=== PATIENT | female | born 1980 | race Caucasian/White ===

== ENCOUNTER 2017-02-13 23:43 | Inpatient (IN) | payer MEDICAID ==
[~2017-02-13] VITALS: Ht 170.2 cm; Wt 70.8 kg
[2017-02-14] MEDS ORDERED: ZOLPIDEM TARTRATE 10 MG TABLET PO PRN (01:30)
[2017-02-14 02:28] VITALS: BP 127/91
[2017-02-14 02:52] VITALS: BP 127/91
[2017-02-14] MEDS ORDERED: INFLUENZA VIRUS VACCINE QVS 2016-17 (3YR+)/PF 60 MCG/0.5 ML SYRINGE IM ONE (05:15)
[2017-02-14 08:26] LABS: BASOPHILS # (AUTO) 0.03 K/uL (0.00-0.20); BASOPHILS % (AUTO) 0.6 % (0.0-2.0); EOSINOPHILS # (AUTO) 0.06 K/uL (0.00-0.70); EOSINOPHILS % (AUTO) 1.14 % (1.0-6.0); HEMATOCRIT 37.4 % (36-46); HEMOGLOBIN 12.3 g/dL (12.0-16.0); LYMPHOCYTES # (AUTO) 1.7 K/uL (1.0-4.8); LYMPHOCYTES % (AUTO) 32.8 % (22.0-44.0); MEAN CORPUSCULAR HEMOGLOBIN 28.3 pg (26.0-34.0); MEAN CORPUSCULAR VOLUME 86 fL (80-100); MONOCYTES # (AUTO) 0.5 K/uL (0.1-1.0); MONOCYTES % (AUTO) 9.6 % (2.0-9.0); NEUTROPHILS # (AUTO) 2.9 K/uL (1.8-7.7); NEUTROPHILS % (AUTO) 55.9 % (40.0-70.0); PLATELET COUNT (AUTO) 225 K/uL (150-450); RED BLOOD CELL COUNT(AUTO) 4.36 MIL/uL (4.00-5.20); WHITE BLOOD COUNT (AUTO) 5.3 K/uL (4.5-11.0)
[2017-02-14 08:50] LABS: ALANINE AMINOTRANSFERASE 17 U/L (12-78); ALBUMIN 3.7 g/dL (3.4-5.0); ANION GAP 10 mmol/L (8-16); ASPARTATE AMINOTRANSFERASE 12 U/L (15-37); BILIRUBIN,TOTAL 1.1 mg/dL (0.1-1.0); CALCIUM, TOTAL 8.4 mg/dL (8.8-10.5); CARBON DIOXIDE 26 mmol/L (22-29); CHLORIDE 106 mmol/L (98-107); CREATININE 0.84 mg/dL (0.60-1.30); GLOMERULAR FILTR. RATE CALC > 60 mL/min (>60); SODIUM SERUM 142 mmol/L (136-145); TOTAL PROTEIN, SERUM 6.1 g/dL (6.4-8.2); UREA NITROGEN, BLOOD 6 mg/dL (7-18)
[2017-02-14 16:23] VITALS: BP 117/67
[2017-02-14] MEDS ORDERED: ACETAMINOPHEN 325 MG TABLET PO PRN (18:00)
[2017-02-14] MEDS ORDERED: IBUPROFEN 400 MG TABLET PO PRN (18:00)
[2017-02-14] MEDS ORDERED: OLANZapine 5 MG TABLET PO SCH (21:00)
[2017-02-15 06:10] VITALS: BP 109/64
[2017-02-15 08:15] VITALS: BP 110/68
[2017-02-15 08:24] LABS: HEMOGLOBIN A1C 5.4 % (4.5-6.2)
[2017-02-15 08:31] LABS: CHOL/HDL RATIO 2.6 (3.9-5.7); THYROID STIMULATING HORMONE 0.59 uIU/mL (0.36-3.74)
[2017-02-15 16:33] VITALS: BP 123/67
[2017-02-15] MEDS: OLANZapine 5 MG TABLET PO SCH (20:33)
[2017-02-16 01:42] VITALS: BP 111/66
[2017-02-16 08:46] VITALS: BP 94/51
[2017-02-16] MEDS: OLANZapine 5 MG TABLET PO SCH ×2 (08:59→21:00)
[2017-02-16 16:21] VITALS: BP 123/72
[2017-02-17 08:17] VITALS: BP 100/67
[2017-02-17] MEDS: OLANZapine 5 MG TABLET PO SCH ×2 (08:39→21:00)
[2017-02-17 16:09] VITALS: BP 112/64
[2017-02-18] MEDS: OLANZapine 5 MG TABLET PO SCH ×2 (08:30→20:35)
[2017-02-18 08:49] VITALS: BP 121/68
[2017-02-18 16:17] VITALS: BP 118/63
[2017-02-19] MEDS: OLANZapine 5 MG TABLET PO SCH ×2 (08:00→21:00)
[2017-02-19 08:39] VITALS: BP 118/56
[2017-02-19 16:15] VITALS: BP 124/67
[2017-02-20 08:38] VITALS: BP 108/65
[2017-02-20] MEDS: OLANZapine 5 MG TABLET PO SCH ×2 (08:42→21:00)
[2017-02-20 16:00] VITALS: BP 117/51
[2017-02-21 06:34] VITALS: BP 110/63
[2017-02-21 08:36] VITALS: BP 100/57
[2017-02-21] MEDS: OLANZapine 5 MG TABLET PO SCH ×2 (08:37→20:37)
[2017-02-21 16:00] VITALS: BP 119/69
[2017-02-22 06:10] VITALS: BP 105/60
[2017-02-22] MEDS: OLANZapine 5 MG TABLET PO SCH ×3 (08:31→20:18)
[2017-02-22 08:50] VITALS: BP 114/53
[2017-02-22] MEDS ORDERED: HALOPERIDOL LACTATE 5 MG/ML VIAL IM PRN (10:45)
[2017-02-22 16:44] VITALS: BP 110/63
[2017-02-23 07:04] VITALS: BP 115/73
[2017-02-23] MEDS: OLANZapine 5 MG TABLET PO SCH ×2 (08:37→20:11)
[2017-02-23 08:59] VITALS: BP 120/69
[2017-02-23 16:00] VITALS: BP 106/65
[2017-02-24 07:00] VITALS: BP 114/78
[2017-02-24] MEDS: FLUoxetine HCL 20 MG CAPSULE PO SCH (08:57)
[2017-02-24] MEDS: OLANZapine 5 MG TABLET PO SCH ×2 (08:57→20:37)
[2017-02-24 08:58] VITALS: BP 116/93
[2017-02-24] MEDS: QUEtiapine FUMARATE 100 MG TABLET PO PRN ×2 (10:27→20:37)
[2017-02-24] MEDS: LORazepam 2 MG TABLET PO PRN (10:27)
[2017-02-24 16:26] VITALS: BP 97/60
[2017-02-25 06:30] VITALS: BP 102/64
[2017-02-25] MEDS: FLUoxetine HCL 20 MG CAPSULE PO SCH (10:04)
[2017-02-25] MEDS: OLANZapine 5 MG TABLET PO SCH ×2 (10:04→20:16)
[2017-02-25] MEDS: LORazepam 2 MG TABLET PO PRN ×2 (10:05→20:17)
[2017-02-25 10:17] VITALS: BP 106/70
[2017-02-25 16:28] VITALS: BP 127/76
[2017-02-26 06:40] VITALS: BP 114/71
[2017-02-26 08:25] VITALS: BP 108/70
[2017-02-26] MEDS: OLANZapine 5 MG TABLET PO SCH ×2 (08:39→20:59)
[2017-02-26] MEDS: LORazepam 2 MG TABLET PO PRN (08:39)
[2017-02-26] MEDS: FLUoxetine HCL 20 MG CAPSULE PO SCH (08:39)
[2017-02-26 16:13] VITALS: BP 116/63
[2017-02-27 06:37] VITALS: BP 109/66
[2017-02-27 08:13] VITALS: BP 111/63
[2017-02-27] MEDS: LORazepam 2 MG TABLET PO PRN (08:27)
[2017-02-27] MEDS: QUEtiapine FUMARATE 100 MG TABLET PO PRN (08:27)
[2017-02-27] MEDS: OLANZapine 5 MG TABLET PO SCH ×2 (08:27→20:40)
[2017-02-27] MEDS: FLUoxetine HCL 20 MG CAPSULE PO SCH (08:27)
[2017-02-27 16:34] VITALS: BP 103/60
[2017-02-28 06:43] VITALS: BP 113/71
[2017-02-28] MEDS: FLUoxetine HCL 20 MG CAPSULE PO SCH (08:18)
[2017-02-28] MEDS: OLANZapine 5 MG TABLET PO SCH ×2 (08:18→20:28)
[2017-02-28 08:44] VITALS: BP 114/72
[2017-02-28 17:05] VITALS: BP 125/66
[2017-03-01 06:42] VITALS: BP 111/72
[2017-03-01] MEDS: OLANZapine 5 MG TABLET PO SCH ×2 (08:02→20:07)
[2017-03-01] MEDS: FLUoxetine HCL 20 MG CAPSULE PO SCH (08:02)
[2017-03-01 08:21] VITALS: BP 100/50
[2017-03-01 16:29] VITALS: BP 121/52
[2017-03-01] MEDS ORDERED: OLAN5TAB2 PO (19:31)
[2017-03-01] MEDS ORDERED: FLUO-191 PO (19:34)
== END 2017-03-02 07:30 | disposition home or self-care (01) | DRG 750 ==
LOC: B3A 02-14 01:22
PROVIDERS: ADMIT Psychiatry & Neurology Child & Adolescent Psychiatry; ATTEND Psychiatry & Neurology Child & Adolescent Psychiatry
DX: F25.1 Schizoaffective disorder, depressive type (principal); Z59.0 Homelessness; E80.6 Other disorders of bilirubin metabolism; F10.10 Alcohol abuse, uncomplicated; Z79.899 Other long term (current) drug therapy; F99 Mental disorder, not otherwise specified; Z28.21 Immunization not carried out because of patient refusal; Z91.5 Personal history of self-harm
CPT/HCPCS: 83036; 84443; 87081; 90471; J1630

== ENCOUNTER 2023-11-15 00:12 | Inpatient (IN) | payer MEDICAID ==
[~2023-11-15] VITALS: Ht 170.2 cm; Wt 73.5 kg
[~2023-11-15 00:12] MED LIST: FLUO-177 PO; OLAN5TAB52 PO
[2023-11-15] MEDS ORDERED: ZOLPIDEM TARTRATE 10 MG TABLET PO PRN (02:30)
[2023-11-15 03:33] VITALS: BP 112/77; PULSE 73; RESP 16; TEMP 96.8; O2SAT 98
[2023-11-15] MEDS ORDERED: ALBUTEROL SULFATE HFA 90 MCG/PUFF 8 GM INHALER IH PRN (07:15)
[2023-11-15] MEDS ORDERED: ONDANSETRON HCL 4 MG TABLET PO PRN (07:15)
[2023-11-15] MEDS ORDERED: DOCUSATE SODIUM 100 MG CAPSULE PO PRN (07:15)
[2023-11-15] MEDS ORDERED: PETROLATUM,WHITE 28 GM JELLY TP PRN (07:15)
[2023-11-15] MEDS ORDERED: CloNIDine HCL 0.1 MG TABLET PO PRN (07:15)
[2023-11-15] MEDS ORDERED: LOPERAMIDE HCL 2 MG CAPSULE PO PRN (07:15)
[2023-11-15] MEDS ORDERED: MAG HYDROX/ALUMINUM HYD/SIMETH ES 30 ML SUSPENSION UDCUP PO PRN (07:15)
[2023-11-15] MEDS ORDERED: OMEPRAZOLE 20 MG CAPSULE PO PRN (07:15)
[2023-11-15] MEDS ORDERED: BENZOCAINE/MENTHOL LOZENGE PO PRN (07:15)
[2023-11-15] MEDS ORDERED: MAGNESIUM HYDROXIDE SUSPENSION 30 ML UDCUP PO PRN (07:15)
[2023-11-15 08:05] LABS: APPEARANCE,URINE CLEAR (CLEAR); BILIRUBIN,URINE NEGATIVE (NEGATIVE); COLOR,URINE LIGHT YELLOW (YELLOW); GLUCOSE, URINE (UA) NEGATIVE (NEGATIVE); KETONES,URINE NEGATIVE (NEGATIVE); LEUKOCYTE ESTERASE ,URINE TRACE (NEGATIVE); NITRATE,URINE NEGATIVE (NEGATIVE); OCCULT BLOOD,URINE NEGATIVE (NEGATIVE); PROTEIN,URINE NEGATIVE (NEGATIVE); UROBILINOGEN,URINE <=1.0 mg/dL (<=1.0)
[2023-11-15 08:11] LABS: ALCOHOL, URINE DRUG SCREEN NEGATIVE (NEGATIVE); AMPHET/METH SCREEN,URINE NEGATIVE (NEGATIVE); BARBITURATE SCREEN, URINE NEGATIVE (NEGATIVE); BENZODIAZEPINES SCREEN,URINE NEGATIVE (NEGATIVE); CANNABINOID SCREEN,URINE NEGATIVE (NEGATIVE); COCAINE SCREEN,URINE NEGATIVE (NEGATIVE); METHADONE SCREEN, URINE NEGATIVE (NEGATIVE); OPIATE SCREEN,URINE NEGATIVE (NEGATIVE); PHENCYCLIDINE SCREEN,URINE NEGATIVE (NEGATIVE)
[2023-11-15 08:26] LABS: BACTERIA,URINE None Seen /HPF (None Seen); RBC,URINE None Seen /HPF (0-2)
[2023-11-15 08:27] LABS: CALCIUM OXALATE CRYSTALS,UR Moderate /LPF (None Seen)
[2023-11-15 08:30] VITALS: BP 93/55; PULSE 76; RESP 18; TEMP 97.8; O2SAT 97
[2023-11-15] MEDS ORDERED: RISP-31 PO (09:58)
[2023-11-15] MEDS ORDERED: MIRT-89 PO (09:58)
[2023-11-15] MEDS ORDERED: OLAN7.5T22 PO (09:59)
[2023-11-15] MEDS: RisperiDONE 2 MG TABLET PO SCH (17:25)
[2023-11-15 23:30] VITALS: BP 118/68; PULSE 74; RESP 18; TEMP 97.7; O2SAT 98
[2023-11-16] MEDS: LORazepam 2 MG TABLET PO PRN ×3 (08:20→20:56)
[2023-11-16] MEDS: HALOPERIDOL 5 MG TABLET PO PRN (08:20)
[2023-11-16] MEDS: RisperiDONE 2 MG TABLET PO SCH ×2 (08:20→16:32)
[2023-11-16 08:57] VITALS: BP 100/59; PULSE 77; RESP 18; TEMP 97.1; O2SAT 97
[2023-11-16 23:25] VITALS: BP 124/67; PULSE 79; RESP 17; TEMP 97.8
[2023-11-17] MEDS: RisperiDONE 2 MG TABLET PO SCH ×2 (08:12→16:38)
[2023-11-17 08:15] VITALS: BP 126/78; PULSE 79; RESP 16; TEMP 98; O2SAT 96
[2023-11-17] MEDS: HALOPERIDOL 5 MG TABLET PO PRN ×2 (11:48→15:49)
[2023-11-17] MEDS: LORazepam 2 MG TABLET PO PRN (11:48)
[2023-11-17 21:38] VITALS: BP 121/72; PULSE 82; RESP 17; TEMP 97.9; O2SAT 97
[2023-11-18 08:26] VITALS: BP 105/65; PULSE 105; RESP 18; TEMP 97.3; O2SAT 98
[2023-11-18] MEDS: RisperiDONE 3 MG TABLET PO SCH ×2 (08:43→17:18)
[2023-11-18] MEDS: LORazepam 2 MG TABLET PO PRN (16:20)
[2023-11-18 17:20] VITALS: BP 111/72; RESP 18
[2023-11-18 21:08] VITALS: RESP 18
[2023-11-19] MEDS: RisperiDONE 3 MG TABLET PO SCH ×2 (08:14→16:33)
[2023-11-19 09:47] VITALS: BP 92/63; PULSE 90; RESP 17; TEMP 98
[2023-11-19] MEDS: LORazepam 2 MG TABLET PO PRN (16:37)
[2023-11-19] MEDS: HALOPERIDOL 5 MG TABLET PO PRN (20:01)
[2023-11-19] MEDS: SULFAMETHOX/TRIMETH DS 800-160 MG/TABLET PO SCH (20:03)
[2023-11-19 21:07] VITALS: BP 100/63; PULSE 90; RESP 17; TEMP 97.5; O2SAT 97
[2023-11-20] MEDS: SULFAMETHOX/TRIMETH DS 800-160 MG/TABLET PO SCH ×2 (08:35→16:37)
[2023-11-20] MEDS: RisperiDONE 3 MG TABLET PO SCH ×2 (08:35→16:37)
[2023-11-20 09:00] VITALS: BP 103/72; PULSE 100; RESP 17; TEMP 97.6; O2SAT 98
[2023-11-20 16:38] VITALS: BP 121/75; PULSE 98; RESP 18
[2023-11-20] MEDS: LORazepam 2 MG TABLET PO PRN (16:38)
[2023-11-20] MEDS: ACETAMINOPHEN 325 MG TABLET PO PRN (18:02)
[2023-11-20 20:14] VITALS: BP 109/61; PULSE 84; RESP 18; TEMP 97.8
[2023-11-21 08:37] VITALS: BP 118/84; PULSE 78; RESP 16; TEMP 98; O2SAT 97
[2023-11-21] MEDS: SULFAMETHOX/TRIMETH DS 800-160 MG/TABLET PO SCH ×2 (08:40→17:03)
[2023-11-21] MEDS: RisperiDONE 3 MG TABLET PO SCH ×2 (08:40→17:03)
[2023-11-21] MEDS: LORazepam 2 MG TABLET PO PRN (14:05)
[2023-11-21] MEDS: HALOPERIDOL 5 MG TABLET PO PRN (14:05)
[2023-11-21] MEDS: IBUPROFEN 600 MG TABLET PO PRN (20:21)
[2023-11-21 20:24] VITALS: BP 114/76; PULSE 76; RESP 18; TEMP 97.9; O2SAT 96
[2023-11-21 21:19] VITALS: RESP 18
[2023-11-22 00:22] VITALS: BP 114/69; PULSE 76; RESP 16; TEMP 98.2; O2SAT 97
[2023-11-22 08:20] VITALS: BP 113/67; PULSE 88; RESP 16; TEMP 98; O2SAT 100
[2023-11-22] MEDS: SULFAMETHOX/TRIMETH DS 800-160 MG/TABLET PO SCH ×2 (08:29→17:03)
[2023-11-22] MEDS: RisperiDONE 2 MG TABLET PO SCH ×2 (08:29→17:03)
[2023-11-22 12:03] VITALS: RESP 17
[2023-11-22] MEDS: IBUPROFEN 600 MG TABLET PO PRN (12:03)
[2023-11-22] MEDS: LORazepam 2 MG TABLET PO PRN (14:49)
[2023-11-22] MEDS: HALOPERIDOL 5 MG TABLET PO PRN ×2 (14:49→21:40)
[2023-11-22 17:15] VITALS: RESP 16; O2SAT 100
[2023-11-22] MEDS: ACETAMINOPHEN 325 MG TABLET PO PRN (17:21)
[2023-11-22 18:21] VITALS: RESP 16; O2SAT 100
[2023-11-22 20:00] VITALS: BP 96/62; PULSE 84; RESP 18; TEMP 97.6; O2SAT 99
[2023-11-22] MEDS: BENZTROPINE MESYLATE 2 MG TABLET PO SCH (21:23)
[2023-11-23 08:27] VITALS: BP 119/66; PULSE 82; RESP 16; TEMP 97.9; O2SAT 97
[2023-11-23] MEDS: SULFAMETHOX/TRIMETH DS 800-160 MG/TABLET PO SCH ×2 (08:31→15:58)
[2023-11-23] MEDS: RisperiDONE 2 MG TABLET PO SCH ×2 (08:31→15:58)
[2023-11-23 10:25] VITALS: BP 112/70; PULSE 80; RESP 18; TEMP 97; O2SAT 98
[2023-11-23] MEDS: IBUPROFEN 600 MG TABLET PO PRN (10:25)
[2023-11-23] MEDS: BACITRACIN 28 GM OINTMENT TP PRN (11:14)
[2023-11-23] MEDS: LORazepam 2 MG TABLET PO PRN (11:21)
[2023-11-23 11:25] VITALS: BP 120/87; RESP 18; O2SAT 99
[2023-11-23] MEDS: HALOPERIDOL 5 MG TABLET PO PRN (13:12)
[2023-11-23] MEDS: BENZTROPINE MESYLATE 2 MG TABLET PO SCH (20:54)
[2023-11-23 21:58] VITALS: BP 97/54; PULSE 75; RESP 18; TEMP 97.8; O2SAT 95
[2023-11-24 08:50] VITALS: BP 106/53; PULSE 89; RESP 18; TEMP 97; O2SAT 98
[2023-11-24] MEDS: HALOPERIDOL 5 MG TABLET PO PRN ×2 (08:52→13:55)
[2023-11-24] MEDS: IBUPROFEN 600 MG TABLET PO PRN (08:52)
[2023-11-24] MEDS: RisperiDONE 2 MG TABLET PO SCH ×2 (08:52→16:46)
[2023-11-24] MEDS: SULFAMETHOX/TRIMETH DS 800-160 MG/TABLET PO SCH ×2 (08:52→16:46)
[2023-11-24] MEDS: BACITRACIN 28 GM OINTMENT TP PRN (08:53)
[2023-11-24 09:52] VITALS: RESP 17
[2023-11-24 12:42] VITALS: RESP 17
[2023-11-24] MEDS: ACETAMINOPHEN 325 MG TABLET PO PRN ×2 (12:42→16:49)
[2023-11-24 13:42] VITALS: RESP 18
[2023-11-24] MEDS: BENZTROPINE MESYLATE 2 MG TABLET PO SCH (20:49)
[2023-11-24 21:20] VITALS: BP 99/57; PULSE 99; RESP 16; TEMP 97.1
[2023-11-25] MEDS: RisperiDONE 2 MG TABLET PO SCH ×2 (08:28→16:36)
[2023-11-25] MEDS: SULFAMETHOX/TRIMETH DS 800-160 MG/TABLET PO SCH ×2 (08:28→16:36)
[2023-11-25 09:10] VITALS: BP 105/68; PULSE 84; RESP 20; TEMP 97.8
[2023-11-25] MEDS: HALOPERIDOL 5 MG TABLET PO PRN ×2 (11:27→15:27)
[2023-11-25] MEDS: ACETAMINOPHEN 325 MG TABLET PO PRN ×2 (11:28→20:03)
[2023-11-25 11:29] VITALS: RESP 20
[2023-11-25 12:31] VITALS: RESP 20
[2023-11-25] MEDS: BENZTROPINE MESYLATE 2 MG TABLET PO SCH (20:03)
[2023-11-25 20:35] VITALS: BP 110/70; PULSE 83; RESP 18; TEMP 97.7
[2023-11-26] MEDS: HALOPERIDOL 5 MG TABLET PO PRN ×2 (08:09→13:57)
[2023-11-26] MEDS: RisperiDONE 2 MG TABLET PO SCH ×2 (08:09→16:08)
[2023-11-26] MEDS: SULFAMETHOX/TRIMETH DS 800-160 MG/TABLET PO SCH ×2 (08:09→16:08)
[2023-11-26 08:16] VITALS: BP 122/71; PULSE 75; RESP 16; TEMP 98.2; O2SAT 99
[2023-11-26] MEDS: HydrOXYzine PAMOATE 25 MG CAPSULE PO PRN (09:40)
[2023-11-26] MEDS: IBUPROFEN 600 MG TABLET PO PRN (14:50)
[2023-11-26 20:40] VITALS: BP 95/65; PULSE 72; RESP 16; TEMP 96.9; O2SAT 100; O2SAT 95
[2023-11-26] MEDS: BENZTROPINE MESYLATE 2 MG TABLET PO SCH (20:47)
[2023-11-27 08:16] VITALS: RESP 16; O2SAT 100
[2023-11-27] MEDS: RisperiDONE 2 MG TABLET PO SCH ×2 (08:16→17:05)
[2023-11-27] MEDS: ACETAMINOPHEN 325 MG TABLET PO PRN ×2 (08:16→17:07)
[2023-11-27 08:21] VITALS: BP 100/62; PULSE 100; RESP 16; TEMP 97.9; O2SAT 100
[2023-11-27 09:16] VITALS: RESP 16; O2SAT 100
[2023-11-27] MEDS: HydrOXYzine PAMOATE 25 MG CAPSULE PO PRN ×2 (11:38→20:52)
[2023-11-27] MEDS: HALOPERIDOL 5 MG TABLET PO PRN (14:05)
[2023-11-27 20:18] VITALS: BP 106/74; PULSE 70; RESP 17; TEMP 97.1; O2SAT 96
[2023-11-27] MEDS: BENZTROPINE MESYLATE 2 MG TABLET PO SCH (20:52)
[2023-11-28] MEDS: RisperiDONE 2 MG TABLET PO SCH ×2 (08:03→16:22)
[2023-11-28 08:22] VITALS: BP 109/63; PULSE 88; RESP 16; TEMP 98; O2SAT 96
[2023-11-28] MEDS: ACETAMINOPHEN 325 MG TABLET PO PRN (10:34)
[2023-11-28 10:35] VITALS: RESP 16; O2SAT 96
[2023-11-28] MEDS: HydrOXYzine PAMOATE 25 MG CAPSULE PO PRN (13:38)
[2023-11-28 20:06] VITALS: BP 120/71; PULSE 80; RESP 18; TEMP 97.9; O2SAT 97
[2023-11-28] MEDS: BENZTROPINE MESYLATE 2 MG TABLET PO SCH (20:26)
[2023-11-29 08:12] VITALS: RESP 18
[2023-11-29] MEDS: ACETAMINOPHEN 325 MG TABLET PO PRN (08:12)
[2023-11-29] MEDS: RisperiDONE 2 MG TABLET PO SCH (08:12)
[2023-11-29] MEDS: HydrOXYzine PAMOATE 25 MG CAPSULE PO PRN (08:12)
[2023-11-29 08:15] VITALS: BP 100/62; PULSE 76; RESP 16; TEMP 97.6; O2SAT 96
[2023-11-29 09:12] VITALS: RESP 16
[2023-11-29] MEDS ORDERED: RISP2TAB86 PO (10:51)
[2023-11-29] MEDS ORDERED: BENZ2TAB71 PO (10:52)
== END 2023-11-29 15:10 | disposition home or self-care (01) | DRG 750 ==
LOC: B3A 02:37
PROVIDERS: ADMIT Psychiatry & Neurology Psychiatry; ATTEND Psychiatry & Neurology Psychiatry
DX: F20.9 Schizophrenia, unspecified (principal); F10.90 Alcohol use, unspecified, uncomplicated; F41.9 Anxiety disorder, unspecified; G47.00 Insomnia, unspecified; I10 Essential (primary) hypertension; F32.A Depression, unspecified; K59.00 Constipation, unspecified; F17.200 Nicotine dependence, unspecified, uncomplicated; Z79.899 Other long term (current) drug therapy
CPT/HCPCS: 80307; 81001; 87081; Z7610

== ENCOUNTER 2025-02-28 19:05 | Emergency (ER) | payer MEDICAID, OTHER ==
[~2025-02-28] VITALS: Ht 170.2 cm; Wt 72.7 kg
[~2025-02-28 19:05] MED LIST changes: +BENZ2TAB84 PO; -FLUO-177 PO; -OLAN5TAB52 PO; +RISP-32 PO
[2025-02-28 19:22] VITALS: BP 139/87; PULSE 99; RESP 18; TEMP 97.7; O2SAT 99
[2025-02-28 19:49] LABS: EOSINOPHILS % (AUTO) 1.3 % (1.0-6.0); HEMATOCRIT 39.1 % (36-46); HEMOGLOBIN 12.8 g/dL (12.0-16.0); LYMPHOCYTES # (AUTO) 1.6 K/uL (1.0-4.8); LYMPHOCYTES % (AUTO) 27.9 % (22.0-44.0); MEAN CORPUSCULAR HEMOGLOBIN 26.7 pg (26.0-34.0); MEAN CORPUSCULAR HGB CONC 32.6 G/dL (31.0-37.0); MEAN CORPUSCULAR VOLUME 82 fL (80-100); MONOCYTES # (AUTO) 0.5 K/uL (0.1-1.0); MONOCYTES % (AUTO) 8.5 % (2.0-9.0); NEUTROPHILS # (AUTO) 3.5 K/uL (1.8-7.7); NEUTROPHILS % (AUTO) 61.3 % (40.0-70.0); PLATELET COUNT (AUTO) 258 K/uL (150-450); RED BLOOD CELL COUNT(AUTO) 4.77 MIL/uL (4.00-5.20); WHITE BLOOD COUNT (AUTO) 5.7 K/uL (4.5-11.0)
[2025-02-28 19:56] LABS: ANION GAP 7 mmol/L (8-16); CALCIUM, TOTAL 8.5 mg/dL (8.8-10.5); CARBON DIOXIDE 28 mmol/L (22-29); CHLORIDE 104 mmol/L (98-107); CREATININE 0.98 mg/dL (0.60-1.30); GLOMERULAR FILTR. RATE CALC > 60 mL/min (>60); GLUCOSE,RANDOM 116 mg/dL (70-110); POTASSIUM 3.8 mmol/L (3.5-5.1); SODIUM SERUM 139 mmol/L (136-145); UREA NITROGEN, BLOOD 15 mg/dL (7-18)
[2025-02-28 20:05] LABS: ALCOHOL, BLOOD (SERUM) < 3 mg/dL (0-10)
[2025-02-28] MEDS ORDERED: RISP4TAB94 PO (21:45)
[2025-02-28] MEDS ORDERED: MIRT-89 PO (21:45)
[2025-02-28] MEDS ORDERED: OLAN10TA74 PO (21:45)
== END 2025-02-28 22:18 | disposition home or self-care (01) ==
LOC: EMS 19:05
DX: F20.0 Paranoid schizophrenia (principal); F17.210 Nicotine dependence, cigarettes, uncomplicated; Z79.899 Other long term (current) drug therapy
CPT/HCPCS: 99284; 80048; 85025; 36415; G0480